=== PATIENT | female | born 1990 | race Caucasian/White ===

== ENCOUNTER 2018-08-31 14:38 | Inpatient (IN) | payer OTHER ==
[2018-08-31] MEDS ORDERED: OXYTOCIN 30 UNITS/LACT RINGERS 500 ML IV ONE (14:48)
[2018-08-31] MEDS ORDERED: RINGERS SOLUTION,LACTATED 1,000 ML IV PRN (14:48)
[2018-08-31] MEDS ORDERED: RINGERS SOLUTION,LACTATED 1,000 ML IV SCH (14:48)
[2018-08-31] MEDS ORDERED: METOCLOPRAMIDE HCL 5 MG/ML 2 ML VIAL IVP PRN (15:00)
[2018-08-31] MEDS ORDERED: METHYLERGONOVINE MALEATE 0.2 MG/ML VIAL IM PRN (15:00)
[2018-08-31] MEDS ORDERED: CITRIC ACID/SODIUM CITRATE 30 ML SOLUTION UDCUP PO PRN (15:00)
[2018-08-31] MEDS ORDERED: LIDOCAINE/PF 1% 30 ML VIAL INJ PRN (15:00)
[2018-08-31] MEDS ORDERED: AMPICILLIN SODIUM 2 GM/NS 100 ML IV ONE (15:00)
[2018-08-31] MEDS ORDERED: MISOPROSTOL 25 MCG TABLET VG SCH (15:00)
[2018-08-31 15:31] LABS: BASOPHILS % (AUTO) 0.5 % (0.0-2.0); EOSINOPHILS % (AUTO) 0.9 % (1.0-6.0); HEMATOCRIT 29.2 % (36-46); HEMOGLOBIN 9.2 g/dL (12.0-16.0); LYMPHOCYTES # (AUTO) 2.3 K/uL (1.0-4.8); LYMPHOCYTES % (AUTO) 20.8 % (22.0-44.0); MEAN CORPUSCULAR HEMOGLOBIN 20.1 pg (26.0-34.0); MEAN CORPUSCULAR HGB CONC 31.4 G/dL (31.0-37.0); MEAN CORPUSCULAR VOLUME 64 fL (80-100); MONOCYTES # (AUTO) 0.5 K/uL (0.1-1.0); MONOCYTES % (AUTO) 4.4 % (2.0-9.0); NEUTROPHILS # (AUTO) 8.2 K/uL (1.8-7.7); NEUTROPHILS % (AUTO) 73.4 % (40.0-70.0); PLATELET COUNT (AUTO)-OB 366 K/uL (150-450); RED BLOOD CELL COUNT(AUTO) 4.56 MIL/uL (4.00-5.20); RED CELL DISTRIBUTION WIDTH 16.1 % (11.5-14.5)
[2018-08-31] MEDS ORDERED: PREN1TAB80 PO (15:38)
[2018-08-31 15:40] VITALS: BP 122/57
[2018-08-31] MEDS ORDERED: FERR-82 PO (15:40)
[2018-08-31] MEDS ORDERED: AMPICILLIN SODIUM 1 GM/NS 50 ML IV SCH (19:00)
[2018-08-31] MEDS ORDERED: OXYGEN THERAPY IH SCH (20:00)
[2018-08-31 20:20] LABS: GLUCOMETER DEV NAME(LOC) 4S.; GLUCOSE,POINT OF CARE 97 MG/DL (70-110)
[2018-08-31] MEDS: MISOPROSTOL 50 MCG TABLET PO SCH (20:34)
[2018-08-31] MEDS: RINGERS SOLUTION,LACTATED 1,000 ML IV SCH (23:04)
[2018-08-31] MEDS: FentaNYL CITRATE-PF 100 MCG/2 ML VIAL IVP PRN ×2 (23:05→23:37)
[2018-09-01] MEDS: MISOPROSTOL 50 MCG TABLET PO SCH (00:47)
[2018-09-01] MEDS ORDERED: ROPIVACAINE HCL/PF 0.2% 100 ML ED ONE (01:21)
[2018-09-01] MEDS ORDERED: CHLORHEXIDINE GLUCONATE 4% 118 ML TOPICAL LIQUID TP ONE (01:30)
[2018-09-01] MEDS: RINGERS SOLUTION,LACTATED 1,000 ML IV SCH ×3 (02:22→13:25)
[2018-09-01] MEDS ORDERED: AMPICILLIN SODIUM 2 GM/NS 100 ML IV ONE (05:00)
[2018-09-01] MEDS ORDERED: OXYTOCIN 30 UNITS/LACT RINGERS 500 ML IV ONE (07:35)
[2018-09-01] MEDS ORDERED: ROPIVACAINE HCL/PF 0.2% 100 ML ED PRN (08:00)
[2018-09-01] MEDS ORDERED: ONDANSETRON HCL 4 MG/2 ML VIAL IVP PRN (08:00)
[2018-09-01] MEDS ORDERED: DiphenhydrAMINE HCL 50 MG/ML VIAL IVP PRN (08:00)
[2018-09-01] MEDS ORDERED: NALBUPHINE HCL 10 MG/ML VIAL IVP PRN (08:00)
[2018-09-01] MEDS ORDERED: RINGERS SOLUTION,LACTATED 1,000 ML IV ONE (15:06)
[2018-09-01] MEDS ORDERED: BENZOCAINE 20%/MENTHOL 56 GM SPRAY CANISTER TP PRN (15:15)
[2018-09-01] MEDS ORDERED: LANOLIN 7 GM OINTMENT TP PRN (15:15)
[2018-09-01] MEDS ORDERED: OxyCODONE HCL/ACETAMINOPHEN 5-325 MG TABLET PO PRN ×2 (15:15)
[2018-09-01] MEDS ORDERED: GLYCERIN/WITCH HAZEL LEAF 40 PADS JAR TP PRN (15:15)
[2018-09-01] MEDS: IBUPROFEN 600 MG TABLET PO PRN ×2 (18:23→23:55)
[2018-09-01] MEDS ORDERED: MAGNESIUM HYDROXIDE SUSPENSION 30 ML UDCUP PO SCH (21:00)
[2018-09-02] MEDS: IBUPROFEN 600 MG TABLET PO PRN (05:30)
[2018-09-02 06:48] LABS: BASOPHILS % (AUTO) 0.2 % (0.0-2.0); EOSINOPHILS % (AUTO) 1.4 % (1.0-6.0); HEMATOCRIT 25.2 % (36-46); LYMPHOCYTES # (AUTO) 2.1 K/uL (1.0-4.8); LYMPHOCYTES % (AUTO) 15.6 % (22.0-44.0); MEAN CORPUSCULAR HEMOGLOBIN 20.3 pg (26.0-34.0); MEAN CORPUSCULAR HGB CONC 31.9 G/dL (31.0-37.0); MEAN CORPUSCULAR VOLUME 64 fL (80-100); MONOCYTES # (AUTO) 0.5 K/uL (0.1-1.0); MONOCYTES % (AUTO) 3.8 % (2.0-9.0); NEUTROPHILS # (AUTO) 10.4 K/uL (1.8-7.7); PLATELET COUNT (AUTO)-OB 301 K/uL (150-450); RED BLOOD CELL COUNT(AUTO) 3.97 MIL/uL (4.00-5.20); RED CELL DISTRIBUTION WIDTH 15.4 % (11.5-14.5)
[2018-09-02] MEDS ORDERED: ACET-2247 PO ×2 (11:58→12:08)
[2018-09-02] MEDS ORDERED: DSS100 PO (12:10)
[2018-09-02] MEDS ORDERED: FERR-89 PO (12:11)
[2018-09-02] MEDS ORDERED: DiphenhydrAMINE HCL 25 MG CAPSULE PO ONE (12:15)
== END 2018-09-02 16:00 | disposition home or self-care (01) | DRG 560 ==
LOC: OBSVTOIN 14:46 → 4S 14:46
PROVIDERS: ADMIT Obstetrics & Gynecology; ATTEND Obstetrics & Gynecology
PROC: 10E0XZZ Delivery of Products of Conception, External Approach (ICD-10-PCS; principal; 2018-09-01)
PROC: 3E0R3BZ Introduction of Anesthetic Agent into Spinal Canal, Percutaneous Approach (ICD-10-PCS; 2018-09-01)
PROC: 00HU33Z Insertion of Infusion Device into Spinal Canal, Percutaneous Approach (ICD-10-PCS; 2018-09-01)
DX: O80 Encounter for full-term uncomplicated delivery (principal); Z37.0 Single live birth; Z3A.39 39 weeks gestation of pregnancy; Z88.8 Allergy status to other drugs, medicaments and biological substances; Z91.013 Allergy to seafood
CPT/HCPCS: J0290; J2590; J2795; J3010; J7120